=== PATIENT | female | born 1990 | race African-American/Black ===

== ENCOUNTER 2019-12-29 10:48 | Emergency (ER) | payer MEDICAID, OTHER ==
[~2019-12-29] VITALS: Ht 170.2 cm; Wt 59.0 kg
[2019-12-29 10:51] VITALS: BP 128/91
== END 2019-12-29 11:39 | disposition left against medical advice (07) ==
LOC: ER 11:01
DX: Z53.21 Procedure and treatment not carried out due to patient leaving prior to being seen by health care provider (principal)